=== PATIENT | male | born 1980 | race Caucasian/White ===

== ENCOUNTER 2022-12-09 08:17 | Outpatient (CLI) | payer OTHER, SELFPAY | END 2022-12-09 08:18 | disposition home or self-care (01) | PROVIDERS: PCP Family Medicine; Visit Provider Family Medicine | DX: Z00.00 Encounter for general adult medical examination without abnormal findings (principal); Z13.6 Encounter for screening for cardiovascular disorders | CPT/HCPCS: 80048; 80061 ==

== ENCOUNTER 2023-07-27 08:17 | Outpatient (CLI) | payer OTHER, SELFPAY ==
--- NOTE | 2023-07-27 09:24 | W.ANESCHARGE ---
Anesthesia Charges Start Date/Time Anesthesia Start Date: 07/27/23 Anesthesia Start Time: 08:55 Stop Date/Time Anesthesia Stop Date: 07/27/23 Anesthesia Stop Time: 09:23
--- NOTE | 2023-07-27 10:37 | W.ANESCHARGE ---
Anesthesia Charges Start Date/Time Anesthesia Start Date: 07/27/23 Anesthesia Start Time: 08:55 Stop Date/Time Anesthesia Stop Date: 07/27/23 Anesthesia Stop Time: 09:23
== END 2023-07-27 08:18 | disposition home or self-care (01) ==
LOC: OP CLINIC 08:19
PROVIDERS: PCP Family Medicine; Visit Provider Surgery
DX: Z12.11 Encounter for screening for malignant neoplasm of colon (principal); K63.5 Polyp of colon; Z80.0 Family history of malignant neoplasm of digestive organs
CPT/HCPCS: 00811; 45385; 88305; J2704